=== PATIENT | female | born 1985 | race Caucasian/White ===

== ENCOUNTER 2016-06-15 22:12 | Emergency (ER) | payer OTHER ==
[~2016-06-15] VITALS: Ht 170.2 cm; Wt 54.4 kg
--- NOTE | 2016-06-15 22:18 | ED GENERAL ADULT ---
See Addendum History of Present Illness General Chief Complaint: Psychiatric Related Complaint Stated Complaint: SUICIDAL IDEATION Source: patient, EMS Exam Limitations: clinical condition, physical impairment Vital Signs & Intake/Output Vital Signs & Intake/Output Vital Signs Date Time Temp Pulse Resp B/P Pulse O2 O2 Flow FiO2 Ox Delivery Rate 06/16 0301 96.3 62 16 92/55 98 Room Air 06/16 0142 85 18 100 Room Air 06/16 0000 Room Air ED Intake and Output 06/16 0000 06/15 1200 Intake Total Output Total Balance Patient 120 lb Weight Allergies Coded Allergies: No Known Allergies (06/15/16) Triage Nurses Notes Reviewed? yes Unable To Obtain Hx Due To: patient intoxication Onset: Abrupt Duration: hour(s): Timing: recent history Severity: severe HPI: 06/15/16 11:26 PM 31-year-old female presents to the emergency department for alcohol intoxication and agitation the patient was apparently found outside a bar intoxicated. She expressed suicidal ideation. She admitted to using cocaine and drinking alcohol. In the emergency department she was acutely agitated and could not be descalated. She required sedation and 4 point restraints for her own safety. The onset of the symptoms were abrupt, the duration was just this evening, the severity is significant as her symptoms required her to come to the emergency department for care Past History Travel History Traveled to [place] past 21 day No Medical History Any Pertinent Medical History? see below for history Surgical History Surgical History: non-contributory Family History Hx Contributory? No Review of Systems Review of Systems Constitutional: Reports: no symptoms. EENTM: Reports: no symptoms. Respiratory: Reports: no symptoms. Cardiovascular: Reports: no symptoms. GI: Reports: no symptoms. Genitourinary: Reports: no symptoms. Musculoskeletal: Reports: no symptoms. Skin: Reports: no symptoms. Neurological/Psychological: Reports: depressed. Hematologic/Endocrine: Reports: no symptoms. Physical Exam Physical Exam General Appearance: awake, anxious, severe distress, intoxicated Head: atraumatic, normal appearance Eyes: Bilateral: normal appearance, PERRL, EOMI. Ears, Nose, Throat: normal pharynx, normal ENT inspection Neck: normal inspection Respiratory: normal breath sounds, chest non-tender Cardiovascular: tachycardic Peripheral Pulses: 4+ radial (R), 4+ radial (L) Gastrointestinal: non-tender Back: normal range of motion Extremities: normal inspection Neurologic/Psych: awake, agitated, nonfocal Skin: intact, normal color Comments: 06/16/16 4:30 am The patient is sleeping soundly. She was the removed from restraints blood work was unremarkable other than elevated alcohol level, urine toxicology is pending. She will be signed out to Dr. Schmitz at 7 AM. Crisis consultation was requested. Core Measures ACS in differential dx? No CVA/TIA Diagnosis: No Severe Sepsis Present: No Septic Shock Present: No Progress Differential Diagnoses I considered the following diagnoses in my evaluation of the patient: [Alcohol intoxication, substance abuse, depression, suicidal ideation] Plan of Care: Orders Procedure Date/time Status Continuous Observation Monitor 06/17 427 Active ED CRISIS PSYCH CONSULT 06/17 427 Active Restraint- Discontinue 06/16 033 Active URINE 06/17 127 Active URINE DRUG SCREEN FOR ER ONLY 06/17 127 Active ETHANOL 06/17 127 Complete COMPREHENSIVE METABOLIC PANEL 06/17 127 Complete CBC WITHOUT DIFFERENTIAL 06/17 127 Complete Restraint- Behavioral (Order) 06/15 2355 Active Continuous Observation Monitor 06/15 2337 Active Laboratory Tests 06/16/16 0221: Anion Gap 13, Estimated GFR > 60, BUN/Creatinine Ratio 8.9, Glucose 81, Calcium 9.0, Total Bilirubin 0.8, AST 28, ALT 30, Alkaline Phosphatase 57, Total Protein 6.9, Albumin 4.2, Globulin 2.7, Albumin/Globulin Ratio 1.6, CBC w Diff NO MAN DIFF REQ, RBC 4.14 L, MCV 79.0 L, MCH 25.6 L, RDW 16.8 H, MPV 8.0, Gran % 42.1 L, Lymphocytes % 50.5, Monocytes % 6.2, Eosinophils % 0.7, Basophils % 0.5 , Absolute Granulocytes 2.5, Absolute Lymphocytes 3.0, Absolute Monocytes 0.4, Absolute Eosinophils 0, Absolute Basophils 0, PUBS MCHC 32.4 L, Serum Alcohol 208.0 Initial ED EKG: none Departure Departure Disposition: STILL A PATIENT Condition: Stable Clinical Impression Primary Impression: Alcohol intoxication Secondary Impressions: Depression Departure Forms: Customer Survey General Discharge Information Critical Care Note Critical Care Note Critical Care Time: 30-74 min
[2016-06-16 02:27] LABS: ABSOLUTE BASOPHIL COUNT 0 /CUMM (0.0-0.2); ABSOLUTE EOSINOPHIL COUNT 0 /CUMM (0.0-0.7); ABSOLUTE GRANULOCYTE CT 2.5 /CUMM (1.4-6.5); ABSOLUTE MONOCYTE COUNT 0.4 /CUMM (0.10-0.60); BASOPHIL % 0.5 % (0.0-2.0); EOSINOPHIL % 0.7 % (0-5); GRANULOCYTE % 42.1 % (42.2-75.2); HEMATOCRIT 32.7 % (37-47); MEAN CORPUSCULAR HGB 25.6 PG (27.0-31.0); MEAN CORPUSCULAR HGB CONC 32.4 G/DL (33.0-37.0); PLATELET COUNT 244 /CUMM (130-400); RBC DISTRIBUTION WIDTH 16.8 % (11.5-14.5); RED BLOOD CELL CT 4.14 /CUMM (4.20-5.40); WHITE BLOOD CELL COUNT 5.9 /CUMM (4.8-10.8)
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
--- NOTE | 2016-06-16 12:07 | ED PSYCHIATRIST/APRN CONSULT ---
Psychiatrist/HOURLY CAREGIVER ED Consult Assessment and Plan: Record reviewed, patient interviewed, more detailed note to follow Patient was on Xanax prison, therefore Recommendation: May be discharged home Suggest Gabapentin 600 mg TID x 1 week then 300 mg TID x 1 week then stop Was given local resources for dual diagnosis IOP
[2016-06-16] MEDS ORDERED: GABAPENTIN100 M2 PO (12:12)
[2016-06-16 12:33] VITALS: BP 102/66
--- NOTE | 2016-06-16 13:51 | ED PSYCHIATRIST/APRN CONSULT ---
Psychiatrist/MANGLE OPERATOR GARMENTS ED Consult Assessment and Plan: The patient is a 31-year-old single white female who was brought into the hospital by ambulance following disruptive behaviors at a bar while she was intoxicated. According to the crisis social workers note, the patients chief complaint was I was arguing with people at the bar. The patient reportedly was arguing with the bar employees and other patrons at the bar. Police were called in. She reported that the police brandy a choice between going to alf or going to the emergency room. In the emergency room last night she was placed in 4 point restraints because of threatening the emergency room staff and [id number] behavior. The patient slept overnight and was evaluated at noontime today which is 06/16/2016. Mental status exam today Friday06/16/2016 around Noontime: The patient was alert and oriented she was interviewed in the crisis intervention room where she was on the bed in hospital garb. The patient was not agitated. She reported that she has some collection of what happened last night. The patient acknowledges history of alcohol and drug use in the past and has been in rehabilitation programs. The patient also reported that she was also inpatient in a psychiatric hospital for dual disorders. The patient reported that she does not have any thoughts of wishing or thinking of suicide. She reported that she has been having extreme difficulty in her relationship with her boyfriend they have recently moved from From [place]. The sheetmetal worker, RICO Beltran, spoke with boyfriend who said that he is willing to have her back home but that he is planning to give her money to go back to [place] out because he is fed up with her. The boyfriend seems to think that her addiction is her biggest problem. Recommendations: I discussed with the patients head treatment options including inpatient psychiatric care, intensive outpatient programs, or straightforward outpatient treatment. She reported that she is not interested in inpatient psychiatric care, and that she will think about doing an intensive outpatient or outpatient treatment in the area. I also reviewed with her the risk of withdrawal from benzodiazepines she reported that she has been using only 1 mg of Xanax for the past 2-3 months since her return from [place]. I recommended that she takes gabapentin 600 mg 3 times daily for 1 week then go down to 300 mg 3 times daily for 1 week and then she can stop. The patient was given referral information RICO Beltran, for the available treatments in the area in case she is interested in pursuing that.
== END 2016-06-16 12:34 ==
LOC: ERH 22:12
PROVIDERS: Emergency Medicine
DX: F10.129 Alcohol abuse with intoxication, unspecified (principal); F32.9 Major depressive disorder, single episode, unspecified
CPT/HCPCS: 80307; 81025; 96372; G0463; G0480; J1200; J1630

== ENCOUNTER 2016-09-21 02:54 | Inpatient (IN) | payer OTHER ==
[~2016-09-21] VITALS: Ht 172.7 cm; Wt 61.8 kg
[~2016-09-21 02:54] MED LIST: GABAPENTIN100 M2 PO
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
--- NOTE | 2016-09-21 03:35 | NUR ---
PT NOTED TO BE ASLEEP ON STRETCHER AT THIS TIME. WILL CONTINUE TO MONITOR.
--- NOTE | 2016-09-21 03:52 | NUR ---
SSTX2, LAV AND BLUE TOP TUBES SENT TO LAB.
[2016-09-21 04:25] LABS: ABSOLUTE BASOPHIL COUNT 0 /CUMM (0.0-0.2); ABSOLUTE EOSINOPHIL COUNT 0 /CUMM (0.0-0.7); ABSOLUTE GRANULOCYTE CT 2.6 /CUMM (1.4-6.5); ABSOLUTE LYMPH COUNT 2.3 /CUMM (1.2-3.4); ABSOLUTE MONOCYTE COUNT 0.2 /CUMM (0.10-0.60); BASOPHIL % 0.7 % (0.0-2.0); EOSINOPHIL % 0.3 % (0-5); HEMATOCRIT 32.7 % (37-47); MEAN CORPUSCULAR HGB 26.5 PG (27.0-31.0); MEAN CORPUSCULAR HGB CONC 33.3 G/DL (33.0-37.0); MEAN CORPUSCULAR VOLUME 79.4 FL (81.0-99.0); MEAN PLATELET VOLUME 8.2 FL (7.4-10.4); PLATELET COUNT 196 /CUMM (130-400); RBC DISTRIBUTION WIDTH 17.7 % (11.5-14.5); RED BLOOD CELL CT 4.12 /CUMM (4.20-5.40); WHITE BLOOD CELL COUNT 5.2 /CUMM (4.8-10.8)
--- NOTE | 2016-09-21 04:48 | NUR ---
PT NOTED TO BE ASLEEP ON STRETCHER. NORMAL RR NOTED. WILL CONTINUE TO MONITOR.
--- NOTE | 2016-09-21 06:42 | NUR ---
PT CONTINUES TO SLEEP ON STRETCHER. NORMAL RISE AND FALL OF CHEST NOTED.
--- NOTE | 2016-09-21 07:08 | NUR ---
REPORT GIVEN TO AVILA TONG.
--- NOTE | 2016-09-21 07:16 | NUR ---
REPORT RECEIVED. CARE OF PT ASSUMED
--- NOTE | 2016-09-21 07:46 | NUR ---
PT OBSERVED IN ROOM, RESTING WITH EYES CLOSED
--- NOTE | 2016-09-21 09:46 | NUR ---
PT SLEEPING NO DISTRESS NOTED SITTER REMAINS AT DOOR
--- NOTE | 2016-09-21 11:24 | NUR ---
URINE SENT TO LAB PT MOVED TO ROOM 15
--- NOTE | 2016-09-21 11:30 | NUR ---
ASSUMED CARE OF THIS PT FROM AVILA TONG. PT AMBULATORY TO ROOM 15 WITH STEADY GAIT. PT CALM AND COOPERATIVE AT THIS TIME. SITTER AT DOOR.
--- NOTE | 2016-09-21 13:15 | NUR ---
PT ASLEEP ON BED IN ROOM 15. RESPIRATIONS EQUAL AND UNLABORED AT 16/MIN. SITTER AT DOOR.
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
--- NOTE | 2016-09-21 14:55 | NUR ---
PT MEDICATED WITH ATIVAN 1MG PO FOR ANXIETY. THIS RN OPENED [employer] BAG TO OBTAIN CELL PHONE FOR PT TO RETREIVE PHONE NUMBERS FOR CRISIS TO BE ABLE TO CALL FOR COLLATERAL INFO. PHONE WAS RETURNED TO [place], TAPED CLOSED AND RETURNED TO ER SAFE. SITTER AT DOOR.
--- NOTE | 2016-09-21 16:40 | NUR ---
PT WAS ADVISED BY CRISIS THAT SHE WILL BE ADMITTED TO [facility]. PT TOOK THE NEWS WELL, SECURITY WAS STANDING BY IN CASE OF ESCALATION. SITTER AT DOOR. PT CALM AND COOPERATIVE.
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
--- NOTE | 2016-09-21 19:54 | NUR ---
REPORT GIVEN TO AVILA RAMIREZ ON CPS.
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
[2016-09-21 20:15] VITALS: BP 93/54
[2016-09-21 20:20] VITALS: BP 93/54
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
[2016-09-22] VITALS (9 sets, daily range): BP systolic 90–114; BP diastolic 53–71
--- NOTE | 2016-09-22 06:05 | NUR ---
PATIENT SLEPT ALL NIGHT.
--- NOTE | 2016-09-22 08:44 | NUR ---
DR. FAITH REMINDED OF H&P.
--- NOTE | 2016-09-22 12:16 | NUR ---
PT IS PRESENT WITHIN THE COMMUNITY AND [place]IE[place] AND APPEARS SLIGHTLY WITHDRAWN YET SOME INTERACTION WITH PEERS AND STAFF, DID NOT ATTEND PLANNING MEETING YET, DID GO TO [facility] TODAY WHERE SHE PARTICIPATED AND WORKED WELL WITH OTHERS, SEEN IN THE LOUNGE OFTEN WATCHING TV OR ON THE PT PHONE ASKING FOR CLOTHES TO BE DROPPED OFF, MOOD IS STABLE WITH FULL RANGE AFFECT.
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
--- NOTE | 2016-09-22 23:01 | NUR ---
PT HAS BEEN WITHDRAWN AND SEMI-ISOLATED. SHE APPEARS TO HAVE A QUIET, FLAT AND CONSTRICTED AFFECT. THERE HAS BEEN NO ISSUES AND SHE HAS BEEN PLEASANT. PT DENIES ANY THOUGHTS OF SI WHEN ASKED BY STAFF.
[2016-09-23] VITALS (8 sets, daily range): BP systolic 100–114; BP diastolic 66–748
--- NOTE | 2016-09-23 05:33 | NUR ---
PT RECEIVED ATARAX 25 MG PRN AND APPEARED TO SLEEP WELL AFTER THIS.
--- NOTE | 2016-09-23 10:58 | SOCIAL WORKER PROG NOTE PSYCH ---
Social Work Progress Note Progress Note 10:50am Sw received call from Reyes Aguayo inquiring about pt. This technical publications writer spoke with pt who stated that she did not want any information provided to or sign a REBEKAH for Clarita Aguayo. This technical publications writer did not share any pt information and informed the nurse's station should he call.
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
--- NOTE | 2016-09-23 13:17 | SOCIAL WORKER PROG NOTE PSYCH ---
Social Work Progress Note Progress Note Pt reports she was intoxicated, and denies current thoughts of suicide, she is concerned with money, and reports "I don't want to lose my job because Im here", pt is focused on discharge, and going to "stay with a friend in [place]", she reports I was put on Seroquel, but I will not take it when Im discharged, I don' t like medications, and I went to rehab for all for all of that". Pt showing signs of impulsiveness, and limited insight. "I don't want to lose it in here". Pt encouraged to identify supports, and thought she would commit to outpatient when discharged.
--- NOTE | 2016-09-23 14:05 | NUR ---
PT HAS BEEN ATTENDING GROUPS AND VERBLIZING HER CONCERNS APPROPRIATELY. SHE BECAME DIZZY AFTER ATTENDING GROUP AND HER BP WAS LOW. FLUIDS ENCOURGED AND BP RECHECKED AND WAS 114/66. PTDENIES ANY THOUGHTS OF SUICIDE OR SELF HARM THIS SHIFT. SHE IS COMPLIANT WITH HER MED REGIME
--- NOTE | 2016-09-23 18:54 | NUR ---
PATIENT WAS OBSERVED TO BE FEELING ANXIOUS. WHEN ASKED WHAT WAS BOTHERING HER SHE WAS ABLE TO ATTRIBUTE IT TO NOT KNOWING WHAT WAS GOING ON AND WHAT KIND OF TIMETABLE TO EXPECT DURING HER ADMISSION. I SPENT SOME TIME EXPLAINING THE PROCESS AND ENCOURAGED HER TO BE ACTIVE IN THE DISCHARGE PLANNING. WE TALKED SOME ABOUT HER STRUGGLES TO GET AND REMAIN CLEAN AND WHETHER SHE ALSO NEEDED TO REMAIN SOBER. AFTER SOME TIME FOR REFLECTION I ENDED UP GIVING HER AN AA BOOK AND ENCORAGED HER TO GIVE IT MORE THOUGHT.
[2016-09-24] VITALS (8 sets, daily range): BP systolic 99–118; BP diastolic 62–71
--- NOTE | 2016-09-24 05:58 | NUR ---
PT SLEPT AFTER ATARAX 25 AT 2200. PT COMPLAINED OF DIFFICULTY SLEEPING, GIVEN SEROQUEL 25 PRN AT 0345. PT UP AT 0445 WITH SIGNIFICANT WISDOM TOOTH PAIN. PT DRINKING MORE TO IMPROVE HER CREATININE LEVEL. SHE WOULD LIKE MOTRIN PRN ON HER MED LIST.
--- NOTE | 2016-09-24 11:32 | SOCIAL WORKER PROG NOTE PSYCH ---
Social Work Progress Note Progress Note GERRI MCCARTNEY [id number] 1985 GERRI MCCARTNEY [id number] Pended Authorization # Client Authorization # Type of Request [id number] CONCURRENT Date of Admission/ Start of Services Requested From Submission Date 09/21/2016 09/24/2016 09/24/2016
--- NOTE | 2016-09-24 13:49 | NUR ---
PT REPORTS FEELING EASILY ANNOYED TODAY. SHE DOES DENY ANY THOUGHTS OF SUICIDE OR SELF HARM AT THIS TIME. SHE IS COMPLIANT WITH HER MED REGIME AND SHE IS APPROPRIATE IN THE GROUPS. SHE VERBALIZES HER CONCERNS IN A CALM AND APPROPRIATE MANNER
--- NOTE | 2016-09-24 13:55 | NUR ---
PT IS COMPLIANT AND COOPERATIVE. MOOD IS STABLE WITH A FULL RANGE OF AFFECT. PT DENIES SI AT THIS TIME, NO COMPLAINTS OFFERED. PT IS PRESENT IN THE COMMUNITY AND INTERACTING WELL WITH PEERS AND STAFF. PT IS ATTENDING GROUPS. VITALS ARE STABLE, APPETITE IS GOOD.
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
--- NOTE | 2016-09-24 17:44 | NUR ---
PT IS CCOOPERATIVE WITH STAFF AND PEERS, AND COMPLIANT WITH UNIT RULES. PT DOES APPEARS SLIGHTLY ANXIOUS AND HAS BEEN OBSERVED CRYING AT SEVERAL TIMES. PT SPENDS LONG PERIODS IN [place], AND DOES INTERACT WELL WITH OTHERS. MOOD IS STABLE, AFFECT APPEARS EUTHYMIC TO FULL RANGE, SLIGHTLY LABILE AT TIMES AND TEARFUL, BUT THIS SEEMS TO PASS QUICKLY. COMMUNICATION IS ORGANIZED AND APPEARS NORMAL IN ALL RESPECTS, AND APPETITE IS NORMAL. PT DENIES SI AT THIS TIME.
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
[2016-09-25 03:05] VITALS: BP 102/60
--- NOTE | 2016-09-25 07:01 | NUR ---
PT RECEIVED ATARAX 25 PRN AT 2130. AT 0130, PATIENT UP WITH SEVERE TOOTH PAIN AND GIVEN 975 TYLENOL PRN. AT 0300, PT WAS UP AGAIN WITH SEVERE TOOTH PAIN MAKING IT DIFFICULT FOR HER TO SLEEP. HOD WAS CALLED- PATIENT WAS GIVEN MOTRIN 400PRN AND STARTED ON AUGMENTIN. PT RECEIVED ANOTHER SEROQUEL 25 PRN AT 0300. SHE THEN GARGLED WITH SALT AND WARM WATER. PT RETURNED TO BED AT 0330. PT UP AGAIN AT 0430 WITH SIGNIFICANT TOOTH PAIN. HOD CALLED- PT WAS ORDERED "MAGIC MOUTHWASH". PT SEEN BY DR ALICIA AT 0550. PT LABS WNL THIS AM.
[2016-09-25 08:06] VITALS: BP 92/54
[2016-09-25 08:28] VITALS: BP 92/54
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
[2016-09-25 12:10] VITALS: BP 90/56
--- NOTE | 2016-09-25 12:51 | NUR ---
PT ATTENDED PLANNING MEETING TODAY WHERE SHE REPORTED + SLEEP AND MOOD AND GOAL FOR THE DAY WAS TO HOPEFULLY DISCHARGE. MOOD IS STABLE WITH FULL RANGE AFFECT, APPROPRIATE WITH PEERS AND STAFF, NO ISSUES OR COMPLAINTS OBSERVED OR REPORTED TO THIS RN, COMPLAINT WITH MEDICATIONS.
--- NOTE | 2016-09-25 13:43 | SOCIAL WORKER PROG NOTE PSYCH ---
Social Work Progress Note Progress Note Tw met briefly with pt. Pt confirmed that she plans to move to [place] to live with her friend upon d/c from [facility] (current address is [place]). As discussed with Clarita Winter, this typewriter operator automatic discussed outpt treatment through [facility] in [place]. Pt was in agreement with this and signed a REBEKAH. This typewriter operator automatic spoke with Fela at [facility] and scheduled the soonest intake appointment for the pt for Friday, September 30, 2016 at 8:30am at [address] [place] [address] in [place], [place]. Pt was informed of this and accepted the appt. 2:10pm Clarita Winter and this typewriter operator automatic met with pt. Pt's friend Kang was called and confirmed that she will be living with him in [place]. He did not report any concerns about the pt's discharge, anticipated for tomorrow (09/26). Discharge plans were discussed in which pt will attend an intake assessment for IOP at [facility] in [place] on 09/30/16. Pt was in agreement with this and her friend, Kang, was supportive of this plan. Pt reported that her mood is good and denied SI/HI/AH/VH. Pt discussed medication questions and concerns. She signed a REBEKAH for DCF. 2:30pm This typewriter operator automatic and Clarita Winter APRN contacted DCF to follow up on the 136 that was filed on 09/21/16. A vm was left with this typewriter operator automatic's call back number.
[2016-09-25 16:20] VITALS: BP 116/63
--- NOTE | 2016-09-25 18:26 | NUR ---
PT IS CALM, COOPERATIVE WITH STAFF AND PEERS, AND COMPLIANT WITH UNIT RULES. OFTEN IN [place], INTERTACTING WELL WITH OTHERS. MOOD IS STABLE, AFFECT APPEARS EUTHYMIC TO FULL RANGE, COMMUNICATION IS ORGANIZED AND APPEARS NORMAL IN ALL RESPECTS, AND APPETITE IS NORMAL. PT DENIES SI AT THIS TIME.
[2016-09-25 19:54] VITALS: BP 122/62
[2016-09-26 07:47] VITALS: BP 114/55
[2016-09-26] MEDS ORDERED: SEROQUEL50 M1 PO (10:41)
[2016-09-26] MEDS ORDERED: AMOX-CLAV 875-1 EACH PO (10:41)
[2016-09-26] MEDS ORDERED: NICOTINE PATCH1 EAC2 TOP (10:41)
--- NOTE | 2016-09-26 10:41 | CP SOUTH PROGRESS NOTE PSYCH ---
Psych (Inpt) Progress Note Progress Note Include the following elements, when applicable: Involvement in the active treatment of the patient with behavioral observations of the patient and the patient's response to the treatment. Review of the ongoing treatment process in the context of the treatment plan. Indication of how multi-disciplinary staff members are carrying out the treatment plan. Plans for future interventions and recommendations for revision of the treatment plan. Liaison with other physicians/providers. Progress Note: I discussed this patient's progress to date, current mental status, treatment process in the context of the treatment plan, and discharge planning with staff/ team in the daily morning inpatient team meeting. I also met with the patient myself in individual session. Current Medications Sig/Kamilah Start time Last Medication Dose Route Stop Time Status Admin Acetaminophen 975 MG .STK-MED ONE 09/25 1803 DC PO 09/25 1804 Acetaminophen 975 MG Q6P PRN 09/24 1430 AC 09/26 PO 0447 Amoxicillin/ 875 MG Q12 09/25 0238 AC 09/26 Clavulanate Potassium PO 09/29 1001 0810 Gabapentin 300 MG Q4 HRS NEEDED PRN 09/25 1215 09/26 PO 0813 Ibuprofen 400 MG .STK-MED ONE 09/25 1524 DC PO 09/25 1525 Ibuprofen 600 MG Q6-PRN PRN 09/25 0700 AC 09/26 PO 0720 Lidocaine/Diphenhydr/ 15 ML Q8P PRN 09/25 0500 AC 09/26 Alum/Mg/Simeth PO 0445 Nicotine 2 MG Q4 HRS NEEDED PRN 09/22 1345 AC 09/25 PO 1134 Nicotine 14 MG DAILY 09/22 1047 09/26 TOP 0809 Polyethylene Glycol 17 GM DAILY PRN 09/26 1032 PO Polyethylene Glycol 17 GM DAILY 09/24 1545 DC 09/26 PO 0810 Quetiapine Fumarate 50 MG 0800 09/26 0800 AC 09/26 PO 0810 Quetiapine Fumarate 100 MG 2100 09/25 2100 AC 09/25 PO 2120 Quetiapine Fumarate 50 MG BID 09/24 2200 MS 09/25 PO 0836 Quetiapine Fumarate 25 MG Q6P PRN 09/23 1215 AC 09/25 PO 1802 Vital Signs Date Time Temp Pulse Resp B/P B/P Pulse O2 O2 Flow FiO2 Mean Ox Delivery Rate 09/26 0747 99.6 92 114/55 09/25 1954 95.8 85 122/62 09/25 1620 96 116/63 09/25 1210 80 90/56 A: Chart, progress notes, labs, vital signs and medication list reviewed. Vital signs grossly within normal limits, with low-grade temp. No new lab results today. Met with patient this morning, on the date of discharge. She reported having a difficult conversation with her ex-boyfriend's mother last evening about how she would go about collecting her belongings that remain at her house. Stated that her ex-boyfriend's mother was rude to her and sent mixed messages about whether or not she could stop by there to obtain her belongings. Today, the patient was also served with restraining order paperwork from a marissa indicating that she cannot return to the home of her ex-boyfriend's mother without a police escort. The patient appeared appropriately upset by this news; accepted the paperwork and processed with myself and Mary Gaitan LCSW regarding situation. She verbalized a plan that she would return to the [facility] next Friday with police to obtain her items. She verbalized understanding of the restrictions of the served restraining order. Stated that today she will go to her scheduled shift at work, then go to her friend Kang's house where she will be staying temporarily until securing another stable living situation. Stated that she is relieved to not be returning to the house of her ex-boyfriend's mother; she reported that she feels safe staying with her friend Kang. Patient reported that she is disappointed that she is restricted from visiting her daughter, who remains living in the house of her ex-boyfriend's mother. She is aware that DCF is involved and aware of arrangements, and that they will be further investigating the situation which patient reported feeling hopeful about. She rated anxiety a 3-4/10 (10 being the worst). Rated depression a 1/10 (10 being the worst). Denied feeling hopeless, helpless, worthless and guilty. Insight/judgement improved. Oriented x 3. Alert. Speech normal in rate, tone and volume. Eye contact appropriate. Mood, "ok." Affect full, non-labile. Normal psychomotr activity. She denied active and passive suicidal ideation and homicidal ideation, plans and intent. Stated and also believed she will not harm herself or others. Gave protective factors of her daughter, friend Kang, and job. Denied auditory and visual hallucinations. Denied paranoid ideation. No evidence of delusions. Thought process linear, rational, goal-directed. She reported tolerating all medications well and denied untoward effects. She reported feeling safe and ready for discharge. P: -Discharge today to self care. -F/u at [facility] for intake on 09/30/16 at 8:30AM. -F/u at [facility] for medication evaluation on 10/04/16 at 9:30AM with Dr. Kingston. -Abstain from all substances. Patient encouraged to attend daily to weekly AA/NA meetings and to obtain a sponsor for support in sobriety. -Patient was advised that in the event of an emergency, to call [phone] to the nearest emergency department. Patient verbalized understanding of all instructions. -All discharge prescriptions were e-prescribed to [facility] in [place], [place] ( Francesca Pimentel), today.
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
--- NOTE | 2016-09-26 11:41 | NUR ---
PT IS PRESENT WITHIN THE MILIEU, SOCIAL AND APPROPRIATE WITH PEERS AND STAFF, NO ISSUES OR COMPLAINTS REPORTED OR OBSERVED, MOOD STABLE WITH FULL RANGE AFFECT. INFORMATION PACKETS RE: DEPRESSION AND SI GIVEN AND PT RESOURCE GUIDE AND W-10 REVIEWED AND NO QUESTIONS OR CONCERNS. HAS A + UNDERSTANDING RE: MEDICATION REGIMENT AND FOLLOW-UP DISCHARGE PLAN AND IS MOTIVATED AND FUTURE ORIENTED. WHEN ASKED DIRECTLY DENIES SI/HI/HALLUCINATIONS AND REPORTS OVERALL IMPROVEMENT IN MOOD/BEHAVIOR/MENTAL STATUS/SLEEP/APPETITE. SCHEDULED FOR DISCHARGE AT ABOUT NOON TODAY.
--- NOTE | 2016-09-26 14:39 | SOCIAL WORKER PROG NOTE PSYCH ---
Social Work Progress Note Progress Note 10:58am This Sw met with pt as she is scheduled to discharge from [facility] today. Discharge plans were reviewed ([facility], intake appointment scheduled for 09/30/16, 8:30am). Pt was also offered and accepted an outpatient medication appointment in the event that her medication appointment (date/time) is delayed at [facility]. OPS appointment scheduled with Dr. Kingston on 10/04/16 at 9:30am. Patient will cancel this appointment if it is not needed after she has completed her intake at [facility] and scheduled a medication appointment with them. Additionally, DCF worker, Cj Valdez ([facility]), left a vm for this publications writer. He was informed of discharge plans and that the pt is discharging from [facility] today. Pt attended this phone call and informed him of where she will be living. She was provided with the DCF worker's number and pipe finishing supervisor's name (as Guillermina Valdez will be out of the office until next week). Pt and Guillermina Valdez planned to speak further the next week and the pt provided him with a number where she can be reached as well as a time that they can meet. Pt discussed feeling positive about the conversation with DCF as well as discharge plans. She stated that she plans to work [employer]. She denied SI/HI/ AH/VH.
== END 2016-09-26 12:15 | DRG 754 ==
LOC: ERH 02:54 → ERHI 16:55 → CP SOUTH 16:55 → EDBEDREQ 17:04 → ENTRNSPT 20:02 → CP SOUTH 20:20 → EDTRNSPTSTS 20:23 → CMPTRNSPT 20:36 → CP SOUTH 09-23 08:23
PROVIDERS: Pediatrics; Registered Nurse Psychiatric/Mental Health; ADMIT Psychiatry & Neurology Addiction Medicine
DX: F32.9 Major depressive disorder, single episode, unspecified (principal); Z72.89 Other problems related to lifestyle; F14.90 Cocaine use, unspecified, uncomplicated; Z72.0 Tobacco use; K08.89 Other specified disorders of teeth and supporting structures
CPT/HCPCS: 36415; 80307; 96372; G0480; J1200; J1630